=== PATIENT | male | born 1950 | race American Indian/Alaskan Native ===

== ENCOUNTER 2017-04-06 14:43 | Emergency (ER) | payer MEDICARE ==
[2017-04-06 15:54] LABS: Bilirubin,Urine NEG (Negative); Blood,Urine NEG (Negative); Ketones,Urine NEG (Negative); Leukocyte Esterase,Urine NEG (Negative); Mucus,Urine FEW /HPF; Nitrite,Urine NEG (Negative); Protein,Urine <15 mg/dL mg/dL (Negative); RBC,Urine < 1.0 /HPF (0.0-6.0)
[2017-04-06 16:47] LABS: Anion Gap 17 mmol/L; BUN/Creatinine Ratio 16.66; Blood Urea Nitrogen 15 mg/dL (9-20); Calcium 9.1 mg/dL (8.4-10.2); Carbon Dioxide 25 mmol/L (22-30); Chloride 106.1 mmol/L (98-107); Glucose 102 mg/dL (75-100); Potassium 3.9 mmol/L (3.6-5.0); Sodium 144 mmol/L (137-145)
[2017-04-06 16:50] LABS: Hematocrit 24.6 % (35.5-45.6); Hemoglobin 8.2 gm/dl (11.8-15.2); Mean Corpuscular HGB Conc 33 % (32-34); Mean Corpuscular Hemoglobin 41 pg (28-32); Platelet Count 191 K/mm3 (140-440); Red Blood Count 2.02 M/mm3 (3.65-5.03); White Blood Count 7.1 K/mm3 (4.5-11.0)
[2017-04-06 16:51] LABS: Mean Corpuscular Volume 122 fl (84-94); Red Cell Distribution Width 27.6 % (13.2-15.2)
[2017-04-06 18:14] LABS: Basophils % (Manual) 0 % (0.0-1.8); Blastocytes % (Manual) 0 %
[2017-04-06 18:17] LABS: Anisocytosis 3+; Macrocytosis 2+; Poikilocytosis 2+
[2017-04-06 18:18] LABS: Ovalocytes 2+; Tear Drop Cells 1+
[2017-04-06 18:22] LABS: Hypersegmented Neutrophils 2+
[2017-04-06 18:34] LABS: Diff Status Complete; Platelet Estimate Consistent w Auto; Schistocytes Few
--- NOTE | 2017-04-07 00:45 | Emergency Department Report ---
ED Male HPI - General Chief complaint: Urogenital-Male Stated complaint: FLANK PAIN/FREQUENT URINATION Time Seen by Provider: 04/06/17 22:48 Source: patient Mode of arrival: Ambulatory Limitations: No Limitations - History of Present Illness Initial comments: 67 yo Male with a past medical history of hypertension and gout presents to the hospital complaining of decreased urinary frequency and mild dysuria 1 week. Pain rated a 4/10 in intensity. Patient denies urinary incontinence, straining , or dribbling. Complains of abdominal pain, flank pain, or fever. - Related Data Previous Rx's Medication Instructions Recorded Last Taken Type Colchicine 0.6 mg PO ONCE #6 capsule 01/12/16 Unknown Rx HYDROcodone/APAP 5-325 [[place] 1 each PO Q6HR PRN #14 tablet 01/12/16 Unknown Rx 5/325] Prednisone [predniSONE 10 mg 10 mg PO .TAPER #1 tab.ds.pk 01/12/16 Unknown Rx (6-Day Pack, 21 Tabs)] Allergies Allergy/AdvReac Type Severity Reaction Status Date / Time No Known Allergies Allergy Verified 04/06/17 15:14 ED Review of Systems ROS: Stated complaint: FLANK PAIN/FREQUENT URINATION Other details as noted in HPI Comment: All other systems reviewed and negative Constitutional: denies: chills, fever ENT: denies: throat pain Respiratory: denies: cough, shortness of breath Cardiovascular: denies: dyspnea on exertion Gastrointestinal: denies: abdominal pain, nausea, vomiting, diarrhea, hematemesis, melena, hematochezia Genitourinary: dysuria, frequency. denies: urgency, hematuria, discharge, testicular pain Musculoskeletal: denies: back pain Skin: denies: rash Neurological: denies: headache Psychiatric: denies: suicidal thoughts Hematological/Lymphatic: denies: easy bleeding ED Past Medical Hx - Past Medical History Hx Hypertension: Yes Additional medical history: gout - Surgical History Past Surgical History?: No - Social History Smoking Status: Current Every Day Smoker Substance Use Type: None - Medications Home Medications: Home Medications Medication Instructions Recorded Confirmed Last Taken Type Colchicine 0.6 mg PO ONCE #6 capsule 01/12/16 Unknown Rx HYDROcodone/APAP 5-325 [[place] 1 each PO Q6HR PRN #14 tablet 01/12/16 Unknown Rx 5/325] Prednisone [predniSONE 10 mg 10 mg PO .TAPER #1 tab.ds.pk 01/12/16 Unknown Rx (6-Day Pack, 21 Tabs)] ED Physical Exam - General Limitations: No Limitations General appearance: alert, in no apparent distress - Head Head exam: Present: atraumatic - Eye Eye exam: Present: normal appearance, PERRL, EOMI - ENT ENT exam: Present: normal exam, normal orophraynx, mucous membranes dry, mucous membranes moist - Neck Neck exam: Present: normal inspection. Absent: tenderness, meningismus - Respiratory Respiratory exam: Present: normal lung sounds bilaterally. Absent: respiratory distress, wheezes, rales - Cardiovascular Cardiovascular Exam: Present: regular rate, normal rhythm, normal heart sounds - GI/Abdominal GI/Abdominal exam: Present: soft, distended, tenderness, normal bowel sounds. Absent: guarding, rebound - exam: Present: normal inspection, vertical testicular lie. Absent: testicular tenderness, urethral discharge, scrotal swelling, circumcision External exam: Present: normal external exam - Extremities Exam Extremities exam: Present: normal inspection, full ROM - Back Exam Back exam: Present: normal inspection, full ROM ED Course Vital Signs 04/06/17 04/06/17 04/06/17 15:14 23:03 23:05 Temperature 97.8 F Pulse Rate 74 Respiratory 16 Rate Blood Pressure 177/91 196/88 199/89 O2 Sat by Pulse 99 97 97 Oximetry - Reevaluation(s) Reevaluation #1: 04/07/17 01:30 Current studies ordered to evaluate for iron deficiency as a cause of anemia. Unfortunately there was a delay in obtaining the results due to a machine error and need for quality assurance specialist. patient as well as ago at this time and does not want to wait any further for his results. He takes a multivitamin with iron at home. Follow-up will be encouraged ED Medical Decision Making - Lab Data Result diagrams: 04/06/17 16:06 04/06/17 16:06 Lab Results 04/06/17 04/06/17 04/06/17 Range/Units 15:30 16:06 16:06 WBC 7.1 (4.5-11.0) K/mm3 RBC 2.02 L (3.65-5.03) M/mm3 Hgb 8.2 L (11.8-15.2) gm/dl Hct 24.6 L (35.5-45.6) % MCV 122 H (84-94) fl MCH 41 H (28-32) pg MCHC 33 (32-34) % RDW 27.6 H (13.2-15.2) % Plt Count 191 (140-440) K/mm3 Add Manual Diff Complete Total Counted 100 Seg Neuts % (Manual) 63.0 (40.0-70.0) % Band Neutrophils % 0 % Lymphocytes % (Manual) 31.0 (13.4-35.0) % Reactive Lymphs % (Man) 0 % Monocytes % (Manual) 3.0 (0.0-7.3) % Eosinophils % (Manual) 3.0 (0.0-4.3) % Basophils % (Manual) 0 (0.0-1.8) % Metamyelocytes % 0 % Myelocytes % 0 % Promyelocytes % 0 % Blast Cells % 0 % Nucleated RBC % 1.0 H (0.0-0.9) % Seg Neutrophils # Man 4.5 (1.8-7.7) K/mm3 Band Neutrophils # 0.0 K/mm3 Lymphocytes # (Manual) 2.2 (1.2-5.4) K/mm3 Abs React Lymphs (Man) 0.0 K/mm3 Monocytes # (Manual) 0.2 (0.0-0.8) K/mm3 Eosinophils # (Manual) 0.2 (0.0-0.4) K/mm3 Basophils # (Manual) 0.0 (0.0-0.1) K/mm3 Metamyelocytes # 0.0 K/mm3 Myelocytes # 0.0 K/mm3 Promyelocytes # 0.0 K/mm3 Blast Cells # 0.0 K/mm3 WBC Morphology Not Reportable Hypersegmented Neuts 2+ Hyposegmented Neuts Not Reportable Hypogranular Neuts Not Reportable Smudge Cells Not Reportable Toxic Granulation Not Reportable Toxic Vacuolation Not Reportable Dohle Bodies Not Reportable Pelger-Huet Anomaly Not Reportable Waylon Rods Not Reportable Platelet Estimate Consistent w auto Clumped Platelets Not Reportable Plt Clumps, EDTA Not Reportable Large Platelets Not Reportable Giant Platelets Not Reportable Platelet Satelliting Not Reportable Plt Morphology Comment Not Reportable RBC Morphology Not Reportable Dimorphic RBCs Not Reportable Polychromasia Not Reportable Hypochromasia Not Reportable Poikilocytosis 2+ Anisocytosis 3+ Microcytosis Not Reportable Macrocytosis 2+ Spherocytes Not Reportable Pappenheimer Bodies Not Reportable Sickle Cells Not Reportable Target Cells Not Reportable Tear Drop Cells 1+ Ovalocytes 2+ Helmet Cells Not Reportable [place] Bodies Not Reportable [place] Rings Not Reportable [place] Cells Not Reportable Bite Cells Not Reportable Crenated Cell Not Reportable Elliptocytes Not Reportable Acanthocytes (Spur) Not Reportable Rouleaux Not Reportable Hemoglobin C Crystals Not Reportable Schistocytes Few Malaria parasites Not Reportable [place] Bodies Not Reportable Hem Pathologist Commnt Sent to pathology Sodium 144 (137-145) mmol/L Potassium 3.9 (3.6-5.0) mmol/L Chloride 106.1 (98-107) mmol/L Carbon Dioxide 25 (22-30) mmol/L Anion Gap 17 mmol/L BUN 15 (9-20) mg/dL Creatinine 0.9 (0.8-1.5) mg/dL Estimated GFR > 60 ml/min BUN/Creatinine Ratio 16.66 % Glucose 102 H (75-100) mg/dL Calcium 9.1 (8.4-10.2) mg/dL Urine Color Yellow (Yellow) Urine Turbidity Clear (Clear) Urine pH 5.0 (5.0-7.0) Ur Specific [place] 1.018 (1.003-1.030) Urine Protein <15 mg/dl (Negative) mg/dL Urine Glucose (UA) Neg (Negative) mg/dL Urine Ketones Neg (Negative) mg/dL Urine Blood Neg (Negative) Urine Nitrite Neg (Negative) Urine Bilirubin Neg (Negative) Urine Urobilinogen 4.0 (<2.0) mg/dL Ur Leukocyte Esterase Neg (Negative) Urine WBC (Auto) 1.0 (0.0-6.0) /HPF Urine RBC (Auto) < 1.0 (0.0-6.0) /HPF Urine Mucus Few /HPF - Medical Decision Making Patient usually does not reveal any abnormality despite complaints of urinary frequency. Penile exam is unremarkable. No function normal. Pt could not wait for Iron studies prior to discharge. Encouraged to follow up and continue his multivitamins with iron at this time. - Differential Diagnosis UTI, urethritis, epididymitis, urinary retention Critical Care Time: No Critical care attestation.: If time is entered above; I have spent that time in minutes in the direct care of this critically ill patient, excluding procedure time. ED Disposition Clinical Impression: Urinary frequency, Anemia Disposition: TO HOME OR SELFCARE Is pt being admited?: No Does the pt Need Aspirin: No Condition: Stable Instructions: Dysuria (ED), Anemia (ED) Additional Instructions: Your Kidney function and urine are normal. Evaluated shows anemia. You have chosen to leave while the iron studies are pending. Please follow up with your doctor for further workup and evaluation. Return if symptoms worsen. Follow- up with the urologist provided due to your urinary symptoms in the absence of infection. Referrals: SANG ROSE MD [Staff Physician] - 3-5 Days (Urologist) PRIMARY MD RAÚL [Primary Care Provider] - 3-5 Days Time of Disposition: 01:24
[2017-04-07 01:44] VITALS: BP 185/92
[2017-04-07 02:37] LABS: Total Iron Binding Capacity 198.8 mcg/dL (250-450)
== END 2017-04-07 01:44 | disposition home or self-care (01) ==
LOC: ED 14:43
DX: D64.9 Anemia, unspecified (principal); R35.0 Frequency of micturition; I10 Essential (primary) hypertension; F17.200 Nicotine dependence, unspecified, uncomplicated
CPT/HCPCS: 36415; 80048; 81001; 83550; 85007; 85025; 87086; 99283

== ENCOUNTER 2017-08-20 09:15 | Outpatient (CLI) | payer MEDICARE ==
--- NOTE | 2017-08-20 14:38 | Nuclear Medicine Report ---
BONE SCAN: History: Initial staging of prostate cancer. After injection of isotope, gamma camera imaging of the bony system was done. There is a normal uptake of isotope throughout the bony structures without areas of significantly increased or decreased uptake. Normal uptake in the urinary system is seen. IMPRESSION: Normal bone scan.
--- NOTE | 2017-08-20 15:12 | Cat Scan Report ---
CT ABDOMEN PELVIS WITHOUT CONTRAST: HISTORY: Malignant neoplasm of prostate gland. COMPARISON: none. TECHNIQUE: Helical CT in 1.25mm intervals without IV contrast. Sagittal and coronal reconstructions. FINDINGS: Lung bases: Normal. Liver: Normal. Biliary system: Layering sludge or multiple tiny gallstones are suspected within the gallbladder. No abnormal biliary dilatation or inflammation. Pancreas: Normal. Spleen: Normal. Kidneys/ureters/bladder: Normal. Adrenal glands: Normal. Aorta: Normal. Intestines: Normal. Appendix: Normal. Pelvic viscera: The prostate gland is normal size measuring 4 cm in diameter. No obvious mass. Ascites: None. Adenopathy: None. Musculoskeletal: Thoracolumbar spondylosis is identified. No suspicious bony lesion or fracture. IMPRESSION: Cholelithiasis. Otherwise, unremarkable exam of the abdomen and pelvis. No evidence for metastatic disease.
== END 2017-08-20 09:16 | disposition home or self-care (01) ==
LOC: NM 09:15
PROVIDERS: ATTEND Urology
DX: C61 Malignant neoplasm of prostate (principal); K80.20 Calculus of gallbladder without cholecystitis without obstruction; M47.895 Other spondylosis, thoracolumbar region; I10 Essential (primary) hypertension; F17.200 Nicotine dependence, unspecified, uncomplicated
CPT/HCPCS: 74176; 78306; A9503

== ENCOUNTER 2019-09-26 10:16 | Emergency (ER) | payer MEDICARE ==
[2019-09-26 10:24] VITALS: BP 128/80
[2019-09-26] MEDS ORDERED: HEPARIN/ 0.45% NACL DRIP 25,000 UNIT/500 ML BAG ONE (11:49)
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
== END 2019-09-26 15:04 | disposition home or self-care (01) ==
LOC: ED 10:16
DX: M25.572 Pain in left ankle and joints of left foot (principal); I10 Essential (primary) hypertension; M10.9 Gout, unspecified; Z79.899 Other long term (current) drug therapy
CPT/HCPCS: 99282; J1644

== ENCOUNTER 2020-02-20 09:02 | Emergency (ER) | payer MEDICARE ==
[2020-02-20 09:20] VITALS: BP 96/57
--- NOTE | 2020-02-20 10:13 | Emergency Department Report ---
ED ENT HPI - General Chief complaint: Dental/Oral Stated complaint: swollen gums Time Seen by Provider: 02/20/20 09:44 Source: patient Mode of arrival: Ambulatory Limitations: No Limitations - History of Present Illness Initial comments: 69-year-old F [place] male with partial dental plates to the lower dentition presents emerged department complaining of pain and requesting a in injection for pain and infection. States he tried to go to the dentist prior to coming to the emergency department but they advised him he did not take a dose on the week ends. His pain is been present for 1 week reports no fevers, chills, sweats no odynophagia or dysphagia no known trauma. MD complaint: tooth pain, sore throat Severity: mild Quality: aching, dull Consistency: constant Improves with: none Worsens with: none Context- Dental: poor dental care Associated Symptoms: gum swelling, toothache. denies: fever, cough, tinnitus, hearing loss - Related Data Previous Rx's Medication Instructions Recorded Last Taken Type Colchicine 0.6 mg PO ONCE #6 capsule 01/12/16 Unknown Rx HYDROcodone/APAP 5-325 [[place] 1 each PO Q6HR PRN #14 tablet 01/12/16 Unknown Rx 5/325] Prednisone [predniSONE 10 mg 10 mg PO .TAPER #1 tab.ds.pk 01/12/16 Unknown Rx (6-Day Pack, 21 Tabs)] Meloxicam [Mobic] 15 mg PO DAILY #20 tablet 09/26/19 Unknown Rx traMADoL [Ultram] 50 mg PO Q6HR PRN #14 tablet 09/26/19 Unknown Rx Allergies Allergy/AdvReac Type Severity Reaction Status Date / Time No Known Allergies Allergy Verified 04/06/17 15:14 ED Dental HPI - General Chief complaint: Dental/Oral Stated complaint: swollen gums Time Seen by Provider: 02/20/20 09:44 Source: patient Mode of arrival: Ambulatory Limitations: No Limitations - Related Data Previous Rx's Medication Instructions Recorded Last Taken Type Colchicine 0.6 mg PO ONCE #6 capsule 01/12/16 Unknown Rx HYDROcodone/APAP 5-325 [[place] 1 each PO Q6HR PRN #14 tablet 01/12/16 Unknown Rx 5/325] Prednisone [predniSONE 10 mg 10 mg PO .TAPER #1 tab.ds.pk 01/12/16 Unknown Rx (6-Day Pack, 21 Tabs)] Meloxicam [Mobic] 15 mg PO DAILY #20 tablet 09/26/19 Unknown Rx traMADoL [Ultram] 50 mg PO Q6HR PRN #14 tablet 09/26/19 Unknown Rx Allergies Allergy/AdvReac Type Severity Reaction Status Date / Time No Known Allergies Allergy Verified 04/06/17 15:14 ED Review of Systems ROS: Stated complaint: swollen gums Other details as noted in HPI Comment: All other systems reviewed and negative ED Past Medical Hx - Past Medical History Previous Medical History?: Yes Hx Hypertension: Yes Additional medical history: gout - Social History Smoking Status: Current Every Day Smoker Substance Use Type: None - Medications Home Medications: Home Medications Medication Instructions Recorded Confirmed Last Taken Type Colchicine 0.6 mg PO ONCE #6 capsule 01/12/16 Unknown Rx HYDROcodone/APAP 5-325 [[place] 1 each PO Q6HR PRN #14 tablet 01/12/16 Unknown Rx 5/325] Prednisone [predniSONE 10 mg 10 mg PO .TAPER #1 tab.ds.pk 01/12/16 Unknown Rx (6-Day Pack, 21 Tabs)] Meloxicam [Mobic] 15 mg PO DAILY #20 tablet 09/26/19 Unknown Rx traMADoL [Ultram] 50 mg PO Q6HR PRN #14 tablet 09/26/19 Unknown Rx ED Physical Exam - General Limitations: No Limitations General appearance: alert, in no apparent distress - Head Head exam: Present: atraumatic, normocephalic - Eye Eye exam: Present: normal appearance, PERRL, EOMI Pupils: Present: normal accommodation - ENT ENT exam: Present: normal exam, normal orophraynx, mucous membranes moist, TM's normal bilaterally, other (Symptoms of erythema to the lower region. No abscesses noted. Tongue and uvula are midline) - Neck Neck exam: Present: normal inspection, tenderness. Absent: lymphadenopathy - Respiratory Respiratory exam: Present: normal lung sounds bilaterally. Absent: respiratory distress, wheezes, rales, chest wall tenderness, accessory muscle use - Cardiovascular Cardiovascular Exam: Present: regular rate, normal rhythm. Absent: systolic murmur, diastolic murmur, rubs, gallop - GI/Abdominal GI/Abdominal exam: Present: soft, normal bowel sounds - Rectal Rectal exam: Present: deferred - Extremities Exam Extremities exam: Present: normal inspection - Back Exam Back exam: Present: normal inspection - Neurological Exam Neurological exam: Present: alert, oriented X3 - Psychiatric Psychiatric exam: Present: normal affect, normal mood - Skin Skin exam: Present: warm, dry, intact, normal color. Absent: rash ED Course Vital Signs 02/20/20 09:08 Temperature 97.4 F L Pulse Rate 104 H Respiratory 18 Rate Blood Pressure 96/57 O2 Sat by Pulse 99 Oximetry Critical care attestation.: If time is entered above; I have spent that time in minutes in the direct care of this critically ill patient, excluding procedure time. ED Disposition Clinical Impression: Dentalgia, Gingivitis Disposition: MED SCREENING EXAM-LEFT Is pt being admited?: No Does the pt Need Aspirin: No Condition: Stable Instructions: Toothache (ED), Dental Caries (ED), Gingivitis (ED) Additional Instructions: Please acquire [id number] antiseptic to gargle and spit utilize Tylenol and Motrin for pain all also [id number] Anbesol Referrals: PRIMARY CARE, [Primary Care Provider] - 3-5 Days [facility] [Outside] - 3-5 Days
== END 2020-02-20 11:07 | disposition left against medical advice (07) ==
LOC: ED 09:02
DX: K05.10 Chronic gingivitis, plaque induced (principal); Z53.21 Procedure and treatment not carried out due to patient leaving prior to being seen by health care provider

== ENCOUNTER 2020-11-20 20:21 | Emergency (ER) | payer MEDICARE ==
[2020-11-20 23:21] VITALS: BP 157/88
[2020-11-20] MEDS ORDERED: ACETAMINOPHEN 500 MG TAB PO ONE (23:22)
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
== END 2020-11-21 04:17 | disposition home or self-care (01) ==
LOC: ED 20:21
DX: S00.03XA Contusion of scalp, initial encounter (principal); J32.9 Chronic sinusitis, unspecified; I10 Essential (primary) hypertension; F17.200 Nicotine dependence, unspecified, uncomplicated; Z79.1 Long term (current) use of non-steroidal anti-inflammatories (NSAID); Z79.2 Long term (current) use of antibiotics; Z79.899 Other long term (current) drug therapy; W22.8XXA Striking against or struck by other objects, initial encounter; Y93.89 Activity, other specified; Y92.89 Other specified places as the place of occurrence of the external cause; Y99.8 Other external cause status
CPT/HCPCS: 70450

== ENCOUNTER 2020-12-03 13:57 | Emergency (ER) | payer MEDICARE ==
[2020-12-03 16:47] VITALS: BP 171/104
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
[2020-12-03] MEDS ORDERED: HYDROcodone/ACETAMINOPHEN 5-325 MG TAB PO ONE (18:47)
== END 2020-12-03 20:55 | disposition home or self-care (01) ==
LOC: ED 13:57
DX: S42.102A Fracture of unspecified part of scapula, left shoulder, initial encounter for closed fracture (principal); I10 Essential (primary) hypertension; F17.200 Nicotine dependence, unspecified, uncomplicated; Z79.1 Long term (current) use of non-steroidal anti-inflammatories (NSAID); Z79.2 Long term (current) use of antibiotics; Z79.899 Other long term (current) drug therapy; X58.XXXA Exposure to other specified factors, initial encounter; Y93.89 Activity, other specified; Y92.89 Other specified places as the place of occurrence of the external cause; Y99.8 Other external cause status

== ENCOUNTER 2021-02-08 11:36 | Emergency (ER) | payer MEDICARE ==
[2021-02-08 11:59] VITALS: BP 156/92
[2021-02-08] MEDS ORDERED: TETRACAINE 0.5% OPHTH SOLN 4ML OU PRN (14:42)
[2021-02-08] MEDS ORDERED: FLUORESCEIN 1 MG STRIP OP ONE (14:42)
--- NOTE | 2021-02-08 14:45 | Emergency Department Report ---
ED General Adult HPI - General Chief complaint: Eye Problems Stated complaint: LEFT EYE PAIN Time Seen by Provider: 02/08/21 13:57 Source: patient Mode of arrival: Ambulatory Limitations: No Limitations - History of Present Illness Initial comments: 70-year-old -[place] male patient presents with complaints of left eyelid pain, redness, and swelling starting this morning. He denies any injury or waking up with the eye crusted shut. He also states that eyes very watery and has a burning sensation. No contact lens wearing per patient. No direct trauma to the eye or foreign body sensation. He does report mild photophobia and denies pain with eye movements or restricted eye movements. -: Sudden Severity scale (0 -10): 10 - Related Data Previous Rx's Medication Instructions Recorded Last Taken Type Colchicine 0.6 mg PO ONCE #6 capsule 01/12/16 Unknown Rx HYDROcodone/APAP 5-325 [[place] 1 each PO Q6HR PRN #14 tablet 01/12/16 Unknown Rx 5/325] Prednisone [predniSONE 10 mg 10 mg PO .TAPER #1 tab.ds.pk 01/12/16 Unknown Rx (6-Day Pack, 21 Tabs)] Meloxicam [Mobic] 15 mg PO DAILY #20 tablet 09/26/19 Unknown Rx Amoxicillin/Potassium Clav 1 each PO Q12H #20 tablet 11/21/20 Unknown Rx [Augmentin 875-125 Tablet] Butalb/Acetamin/Caff 50-325-40 1 tab PO Q6HR PRN #12 tab 11/21/20 Unknown Rx [Fioricet 50-325-40] Ibuprofen [Motrin] 600 mg PO Q8H PRN #20 tablet 11/21/20 Unknown Rx traMADoL [Ultram 50 MG tab] 50 mg PO Q6HR PRN #14 tablet 12/03/20 Unknown Rx Acetaminophen 975 mg PO TID PRN #20 capsule 02/08/21 Unknown Rx Polymyxin B Sulf/Trimethoprim 3 drops OP Q3H 7 Days #1 drops 02/08/21 Unknown Rx [Polytrim Eye Drops] Allergies Allergy/AdvReac Type Severity Reaction Status Date / Time No Known Allergies Allergy Verified 02/08/21 11:51 ED Review of Systems ROS: Stated complaint: LEFT EYE PAIN Other details as noted in HPI Constitutional: denies: fever, malaise Eyes: eye pain, eye discharge. denies: vision change Neurological: denies: headache, numbness, paresthesias ED Past Medical Hx - Past Medical History Previous Medical History?: Yes Hx Hypertension: Yes Additional medical history: gout - Surgical History Past Surgical History?: No - Social History Smoking Status: Current Every Day Smoker Substance Use Type: None - Medications Home Medications: Home Medications Medication Instructions Recorded Confirmed Last Taken Type Colchicine 0.6 mg PO ONCE #6 capsule 01/12/16 Unknown Rx HYDROcodone/APAP 5-325 [[place] 1 each PO Q6HR PRN #14 tablet 01/12/16 Unknown Rx 5/325] Prednisone [predniSONE 10 mg 10 mg PO .TAPER #1 tab.ds.pk 01/12/16 Unknown Rx (6-Day Pack, 21 Tabs)] Meloxicam [Mobic] 15 mg PO DAILY #20 tablet 09/26/19 Unknown Rx Amoxicillin/Potassium Clav 1 each PO Q12H #20 tablet 11/21/20 Unknown Rx [Augmentin 875-125 Tablet] Butalb/Acetamin/Caff 50-325-40 1 tab PO Q6HR PRN #12 tab 11/21/20 Unknown Rx [Fioricet 50-325-40] Ibuprofen [Motrin] 600 mg PO Q8H PRN #20 tablet 11/21/20 Unknown Rx traMADoL [Ultram 50 MG tab] 50 mg PO Q6HR PRN #14 tablet 12/03/20 Unknown Rx Acetaminophen 975 mg PO TID PRN #20 capsule 02/08/21 Unknown Rx Polymyxin B Sulf/Trimethoprim 3 drops OP Q3H 7 Days #1 drops 02/08/21 Unknown Rx [Polytrim Eye Drops] ED Physical Exam - General Limitations: No Limitations General appearance: alert, in no apparent distress - Head Head exam: Present: atraumatic, normocephalic - Eye Eye exam: Present: normal appearance, PERRL, EOMI (No pain with eye movement), conjunctival injection (left), periorbital tenderness (mild), other (Mild swelling noted to the left lower eyelid; no cellulitic changes noted). Absent: scleral icterus, periorbital swelling - Expanded Eye Exam Expanded IOP (L) in mmH (11, 14, 12, 19) IOP measured with: Tonopen - Neck Neck exam: Present: normal inspection - Respiratory Respiratory exam: Absent: respiratory distress - Cardiovascular Cardiovascular Exam: Present: regular rate - Neurological Exam Neurological exam: Present: alert, oriented X3 - Psychiatric Psychiatric exam: Present: normal affect, normal mood - Skin Skin exam: Present: warm, dry, intact, normal color. Absent: rash ED Course Vital Signs 02/08/21 11:58 Temperature 98 F Pulse Rate 82 Respiratory 18 Rate Blood Pressure 156/92 [Right] O2 Sat by Pulse 97 Oximetry ED Medical Decision Making - Medical Decision Making 70-year-old -[place] Irish male patient presents with complaints of left eyelid pain, redness, and swelling starting this morning. He denies any injury or waking up with the eye crusted shut. He also states that eyes very watery and has a burning sensation. No contact lens wearing per patient. No direct trauma to the eye or foreign body sensation. He does report mild photophobia and denies pain with eye movements or restricted eye movements. Shaheed-Pen eye pressures were measured at 19, 11, 12, and 14. Visual acuity 20/40 bilaterally. No noted corneal abrasions or wounds wound exam. He denies decreased vision of the eye. We will treat for acute bacterial conjunctivitis. Patient to follow-up with ophthalmology, referral provided. Patient is well- appearing and he is stable for discharge home. Very strict return precautions were discussed in detail with patient who verbalizes understanding. Critical care attestation.: If time is entered above; I have spent that time in minutes in the direct care of this critically ill patient, excluding procedure time. ED Disposition Clinical Impression: Irritation of left eye Disposition: DC-01 TO HOME OR SELFCARE Is pt being admited?: No Condition: Stable Instructions: Bacterial Conjunctivitis, Adult Prescriptions: Acetaminophen 975 mg PO TID PRN #20 capsule PRN Reason: pain Polymyxin B Sulf/Trimethoprim [Polytrim Eye Drops] 3 drops OP Q3H 7 Days #1 drops Referrals: DEANGELO PRUETT DO [Staff Physician] - 3-5 Days
[2021-02-08] MEDS ORDERED: D5W/0.9% NACL 1,000 ML IV ONE (15:48)
[2021-02-08] MEDS ORDERED: LACTATED RINGERS 1,000 ML ONE (15:48)
[2021-02-08] MEDS ORDERED: ACETAMINOPHEN 500 MG TAB PO STA (16:02)
== END 2021-02-08 16:25 | disposition home or self-care (01) ==
LOC: ED 11:36
DX: H57.12 Ocular pain, left eye (principal); R22.0 Localized swelling, mass and lump, head; I10 Essential (primary) hypertension; F17.200 Nicotine dependence, unspecified, uncomplicated; Z79.1 Long term (current) use of non-steroidal anti-inflammatories (NSAID); Z79.2 Long term (current) use of antibiotics; Z79.899 Other long term (current) drug therapy
CPT/HCPCS: J7042; J7120

== ENCOUNTER 2021-03-18 08:28 | Emergency (ER) | payer MEDICARE ==
[2021-03-18] MEDS ORDERED: KETOROLAC 30 MG/1 ML INJ IM ONE (10:13)
[2021-03-18] MEDS ORDERED: ACETAMINOPHEN 500 MG TAB PO ONE (10:13)
--- NOTE | 2021-03-18 10:21 | Emergency Department Report ---
ED Back Pain/Injury HPI - General Chief Complaint: Back Pain/Injury Stated Complaint: LOWER BACK PAIN Time Seen by Provider: 03/18/21 10:13 Source: patient Limitations: No Limitations - History of Present Illness Initial Comments: CC: "My back has been hurting. My muscles feel swollen." HPI: This is a 71 yo male with hx of gout and hypertension who presents with lower back pain since . 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 No trauma, just repetitive movement in an out of a truck. Alleve and diclofenac gel provide no relief. Denies fall. Denies fever or weight loss. No fecal or urinary incontinence. MD Complaint: back pain -: Gradual, days(s) (3 days) Place: work Severity: moderate Severity scale (0 -10): 7 Quality: dull Consistency: constant Improves With: none Worsens With: movement Associated Symptoms: denies other symptoms Treatments Prior to Arrival: NSAIDS - Related Data Previous Rx's Medication Instructions Recorded Last Taken Type Colchicine 0.6 mg PO ONCE #6 capsule 01/12/16 Unknown Rx HYDROcodone/APAP 5-325 [[place] 1 each PO Q6HR PRN #14 tablet 01/12/16 Unknown Rx 5/325] Prednisone [predniSONE 10 mg 10 mg PO .TAPER #1 tab.ds.pk 01/12/16 Unknown Rx (6-Day Pack, 21 Tabs)] Meloxicam [Mobic] 15 mg PO DAILY #20 tablet 09/26/19 Unknown Rx Amoxicillin/Potassium Clav 1 each PO Q12H #20 tablet 11/21/20 Unknown Rx [Augmentin 875-125 Tablet] Butalb/Acetamin/Caff 50-325-40 1 tab PO Q6HR PRN #12 tab 11/21/20 Unknown Rx [Fioricet 50-325-40] Ibuprofen [Motrin] 600 mg PO Q8H PRN #20 tablet 11/21/20 Unknown Rx traMADoL [Ultram 50 MG tab] 50 mg PO Q6HR PRN #14 tablet 12/03/20 Unknown Rx Acetaminophen 975 mg PO TID PRN #20 capsule 02/08/21 Unknown Rx Polymyxin B Sulf/Trimethoprim 3 drops OP Q3H 7 Days #1 drops 02/08/21 Unknown Rx [Polytrim Eye Drops] Cyclobenzaprine [Flexeril] 10 mg PO TID PRN #15 tablet 03/18/21 Unknown Rx HYDROcodone/APAP 5-325 [[place] 1 each PO Q6HR PRN #10 tablet 03/18/21 Unknown Rx 5/325] Allergies Allergy/AdvReac Type Severity Reaction Status Date / Time No Known Allergies Allergy Verified 03/18/21 08:38 ED Review of Systems ROS: Stated complaint: LOWER BACK PAIN Other details as noted in HPI Comment: All other systems reviewed and negative Constitutional: denies: fever, malaise Respiratory: denies: cough, shortness of breath Gastrointestinal: denies: abdominal pain, nausea, vomiting Musculoskeletal: back pain ED Past Medical Hx - Past Medical History Previous Medical History?: Yes Hx Hypertension: Yes Additional medical history: gout - Social History Smoking Status: Current Every Day Smoker Substance Use Type: None - Medications Home Medications: Home Medications Medication Instructions Recorded Confirmed Last Taken Type Colchicine 0.6 mg PO ONCE #6 capsule 01/12/16 Unknown Rx HYDROcodone/APAP 5-325 [[place] 1 each PO Q6HR PRN #14 tablet 01/12/16 Unknown Rx 5/325] Prednisone [predniSONE 10 mg 10 mg PO .TAPER #1 tab.ds.pk 01/12/16 Unknown Rx (6-Day Pack, 21 Tabs)] Meloxicam [Mobic] 15 mg PO DAILY #20 tablet 09/26/19 Unknown Rx Amoxicillin/Potassium Clav 1 each PO Q12H #20 tablet 11/21/20 Unknown Rx [Augmentin 875-125 Tablet] Butalb/Acetamin/Caff 50-325-40 1 tab PO Q6HR PRN #12 tab 11/21/20 Unknown Rx [Fioricet 50-325-40] Ibuprofen [Motrin] 600 mg PO Q8H PRN #20 tablet 11/21/20 Unknown Rx traMADoL [Ultram 50 MG tab] 50 mg PO Q6HR PRN #14 tablet 12/03/20 Unknown Rx Acetaminophen 975 mg PO TID PRN #20 capsule 02/08/21 Unknown Rx Polymyxin B Sulf/Trimethoprim 3 drops OP Q3H 7 Days #1 drops 02/08/21 Unknown Rx [Polytrim Eye Drops] Cyclobenzaprine [Flexeril] 10 mg PO TID PRN #15 tablet 03/18/21 Unknown Rx HYDROcodone/APAP 5-325 [[place] 1 each PO Q6HR PRN #10 tablet 03/18/21 Unknown Rx 5/325] ED Physical Exam - General Limitations: No Limitations General appearance: alert, in no apparent distress, other (Appears comfortable, sitting upright in chair with legs crossed at the knee) - Head Head exam: Present: atraumatic, normocephalic - Eye Eye exam: Absent: scleral icterus, conjunctival injection - ENT ENT exam: Present: mucous membranes moist - Neck Neck exam: Present: normal inspection - Respiratory Respiratory exam: Present: normal lung sounds bilaterally. Absent: respiratory distress, wheezes, rales, rhonchi, stridor - Cardiovascular Cardiovascular Exam: Present: regular rate, normal rhythm, normal heart sounds. Absent: systolic murmur, diastolic murmur, rubs, gallop - GI/Abdominal GI/Abdominal exam: Present: soft. Absent: distended, tenderness, guarding, rebound - Rectal Rectal exam: Present: deferred - Extremities Exam Extremities exam: Present: normal inspection - Back Exam Back exam: Present: full ROM, muscle spasm. Absent: tenderness, vertebral tenderness - Neurological Exam Neurological exam: Present: alert, oriented X3 - Psychiatric Psychiatric exam: Present: normal affect, normal mood - Skin Skin exam: Present: warm, dry, intact, normal color. Absent: rash ED Medical Decision Making - Medical Decision Making Lower back strain due to repetitive movement in and out of truck also exacerbated by prolonged driving. Though red flags such as trauma weight loss neurological deficit incontinence. Patient prescribed Flexeril and [place]. He also requests light duty for 4 days. Patient referred to spine surgeons at, [facility] brain and strategic communications specialist. Critical care attestation.: If time is entered above; I have spent that time in minutes in the direct care of this critically ill patient, excluding procedure time. ED Disposition Clinical Impression: Repetitive strain injury of lower back Disposition: DC-01 TO HOME OR SELFCARE Is pt being admited?: No Does the pt Need Aspirin: No Condition: Stable Instructions: Lumbar Strain Prescriptions: Cyclobenzaprine [Flexeril] 10 mg PO TID PRN #15 tablet PRN Reason: Muscle Spasm HYDROcodone/APAP 5-325 [[place] 5/325] 1 each PO Q6HR PRN #10 tablet PRN Reason: Pain Forms: Work/School Release Form(ED)
== END 2021-03-18 11:02 | disposition home or self-care (01) ==
LOC: ED 08:28
DX: S39.012A Strain of muscle, fascia and tendon of lower back, initial encounter (principal); I10 Essential (primary) hypertension; F17.200 Nicotine dependence, unspecified, uncomplicated; Z79.899 Other long term (current) drug therapy; X58.XXXA Exposure to other specified factors, initial encounter; Y93.89 Activity, other specified; Y92.89 Other specified places as the place of occurrence of the external cause; Y99.8 Other external cause status
CPT/HCPCS: 96372; 99282; J1885

== ENCOUNTER 2021-05-08 03:37 | Emergency (ER) | payer MEDICARE ==
[2021-05-08 05:25] VITALS: BP 137/81
[2021-05-08] MEDS ORDERED: FAMOTIDINE 20 MG TAB PO ONE (05:28)
[2021-05-08] MEDS ORDERED: ONDANSETRON 4 MG ODT TAB PO ONE (05:28)
[2021-05-08] MEDS ORDERED: DICYCLOMINE 20 MG TAB PO ONE (05:28)
--- NOTE | 2021-05-08 05:31 | Event Note ---
ED Screening Note Date of service: 05/08/21 Time: 05:30 ED Screening Note: Patient is a 71-year-old -Omani male with a history of hypertension and gout who presents to the ED with complaint of acute onset persistent diffuse abdominal pain for the last 3 days. Patient states that the pain has been persistent despite taking qmpl-dma-kziezry antacids like Laney-Waverly, Pepto- Bismol and Mylanta. Patient denies dizziness, syncope, vomiting, nausea, diarrhea, constipation, chest pain or shortness of breath, hematuria, dysuria, urinary frequency and urgency, fever or chills and cough. This initial assessment/diagnostic orders/clinical plan/treatment(s) is/are subject to change based on patients health status, clinical progression and re- assessment by fellow clinical providers in the ED. Further treatment and workup at subsequent clinical providers discretion. Patient/guardian urged not to elope from the ED as their condition may be serious if not clinically assessed and managed. Initial orders include: CBC, CMP, UA, lipase,
[2021-05-08 06:19] LABS: Albumin 4.2 g/dL (3.9-5); Calcium 9.2 mg/dL (8.4-10.2)
[2021-05-08 06:32] LABS: Basophils % (Auto) 0.3 % (0.0-1.8); Eosinophils # (Auto) 0.1 K/mm3 (0.0-0.4); Eosinophils % (Auto) 0.8 % (0.0-4.3); Hematocrit 42.5 % (35.5-45.6); Hemoglobin 14.3 gm/dl (11.8-15.2); Lymphocytes # (Auto) 1.6 K/mm3 (1.2-5.4); Lymphocytes % (Auto) 17.5 % (13.4-35.0); Mean Corpuscular HGB Conc 34 % (32-34); Mean Corpuscular Volume 105 fl (84-94); Monocytes # (Auto) 0.4 K/mm3 (0.0-0.8); Monocytes % (Auto) 4.3 % (0.0-7.3); Platelet Count 277 K/mm3 (140-440); Red Blood Count 4.04 M/mm3 (3.65-5.03); Red Cell Distribution Width 16.7 % (13.2-15.2)
--- NOTE | 2021-05-08 06:56 | Emergency Department Report ---
ED Abdominal Pain HPI - General Chief Complaint: Abdominal Pain Stated Complaint: ABD PAIN Time Seen by Provider: 05/08/21 06:44 Source: patient Mode of arrival: Ambulatory Limitations: No Limitations - History of Present Illness Initial Comments: Patient is 71 years old male with history of hypertension. Patient presented to the ER complaining of diffuse abdominal pain for the last 3 days. Patient describes his pain as burning sensation in his abdomen. Patient rated his pain at 5 out of 10. He stated that pain comes and goes. Patient denied any fever or chills. No vomiting but nauseated. He denied diarrhea or constipation. Patient denied any chest pain or shortness of breath. MD Complaint: abdominal pain -: days(s) (3) Location: diffuse Radiation: none Migration to: no migration Severity: moderate Severity scale (0 -10): 6 Quality: burning Associated Symptoms: nausea. denies: vomiting, diarrhea, fever - Related Data Previous Rx's Medication Instructions Recorded Last Taken Type Colchicine 0.6 mg PO ONCE #6 capsule 01/12/16 Unknown Rx HYDROcodone/APAP 5-325 [[place] 1 each PO Q6HR PRN #14 tablet 01/12/16 Unknown Rx 5/325] Prednisone [predniSONE 10 mg 10 mg PO .TAPER #1 tab.ds.pk 01/12/16 Unknown Rx (6-Day Pack, 21 Tabs)] Meloxicam [Mobic] 15 mg PO DAILY #20 tablet 09/26/19 Unknown Rx Amoxicillin/Potassium Clav 1 each PO Q12H #20 tablet 11/21/20 Unknown Rx [Augmentin 875-125 Tablet] Butalb/Acetamin/Caff 50-325-40 1 tab PO Q6HR PRN #12 tab 11/21/20 Unknown Rx [Fioricet 50-325-40] Ibuprofen [Motrin] 600 mg PO Q8H PRN #20 tablet 11/21/20 Unknown Rx traMADoL [Ultram 50 MG tab] 50 mg PO Q6HR PRN #14 tablet 12/03/20 Unknown Rx Acetaminophen 975 mg PO TID PRN #20 capsule 02/08/21 Unknown Rx Polymyxin B Sulf/Trimethoprim 3 drops OP Q3H 7 Days #1 drops 02/08/21 Unknown Rx [Polytrim Eye Drops] Cyclobenzaprine [Flexeril] 10 mg PO TID PRN #15 tablet 03/18/21 Unknown Rx HYDROcodone/APAP 5-325 [[place] 1 each PO Q6HR PRN #10 tablet 03/18/21 Unknown Rx 5/325] Allergies Allergy/AdvReac Type Severity Reaction Status Date / Time No Known Allergies Allergy Verified 03/18/21 08:38 ED Review of Systems ROS: Stated complaint: ABD PAIN Other details as noted in HPI Comment: All other systems reviewed and negative Constitutional: denies: chills, fever Respiratory: denies: cough, shortness of breath, SOB with exertion, SOB at rest Cardiovascular: denies: chest pain, palpitations Gastrointestinal: abdominal pain, nausea. denies: vomiting, diarrhea, constipation, hematemesis, melena, hematochezia Genitourinary: denies: urgency, dysuria, frequency, hematuria, discharge, testi cular pain, testicular mass Musculoskeletal: denies: back pain Neurological: denies: headache, weakness, numbness, paresthesias, confusion ED Past Medical Hx - Past Medical History Hx Hypertension: Yes Additional medical history: gout - Social History Smoking Status: Current Some Day Smoker Substance Use Type: None - Medications Home Medications: Home Medications Medication Instructions Recorded Confirmed Last Taken Type Colchicine 0.6 mg PO ONCE #6 capsule 01/12/16 Unknown Rx HYDROcodone/APAP 5-325 [[place] 1 each PO Q6HR PRN #14 tablet 01/12/16 Unknown Rx 5/325] Prednisone [predniSONE 10 mg 10 mg PO .TAPER #1 tab.ds.pk 01/12/16 Unknown Rx (6-Day Pack, 21 Tabs)] Meloxicam [Mobic] 15 mg PO DAILY #20 tablet 09/26/19 Unknown Rx Amoxicillin/Potassium Clav 1 each PO Q12H #20 tablet 11/21/20 Unknown Rx [Augmentin 875-125 Tablet] Butalb/Acetamin/Caff 50-325-40 1 tab PO Q6HR PRN #12 tab 11/21/20 Unknown Rx [Fioricet 50-325-40] Ibuprofen [Motrin] 600 mg PO Q8H PRN #20 tablet 11/21/20 Unknown Rx traMADoL [Ultram 50 MG tab] 50 mg PO Q6HR PRN #14 tablet 12/03/20 Unknown Rx Acetaminophen 975 mg PO TID PRN #20 capsule 02/08/21 Unknown Rx Polymyxin B Sulf/Trimethoprim 3 drops OP Q3H 7 Days #1 drops 02/08/21 Unknown Rx [Polytrim Eye Drops] Cyclobenzaprine [Flexeril] 10 mg PO TID PRN #15 tablet 03/18/21 Unknown Rx HYDROcodone/APAP 5-325 [[place] 1 each PO Q6HR PRN #10 tablet 03/18/21 Unknown Rx 5/325] ED Physical Exam - General Limitations: No Limitations General appearance: alert, in no apparent distress - Head Head exam: Present: atraumatic, normocephalic, normal inspection - Eye Eye exam: Present: normal appearance, PERRL - ENT ENT exam: Present: normal exam, normal orophraynx, mucous membranes moist - Neck Neck exam: Present: normal inspection, full ROM. Absent: tenderness, meningismus - Respiratory Respiratory exam: Present: normal lung sounds bilaterally - Cardiovascular Cardiovascular Exam: Present: regular rate, normal rhythm, normal heart sounds - GI/Abdominal GI/Abdominal exam: Present: soft, normal bowel sounds. Absent: distended, tenderness, guarding, rebound, rigid, organomegaly, mass, bruit, pulsatile mass, hernia - Extremities Exam Extremities exam: Present: normal inspection, full ROM, normal capillary refill. Absent: pedal edema, calf tenderness - Back Exam Back exam: Present: normal inspection, full ROM. Absent: CVA tenderness (R), CVA tenderness (L) - Neurological Exam Neurological exam: Present: alert, oriented X3, CN II-XII intact, normal gait, reflexes normal. Absent: motor sensory deficit - Psychiatric Psychiatric exam: Present: normal mood - Skin Skin exam: Present: warm, intact, normal color ED Course Vital Signs 05/08/21 05/08/21 05:15 05:21 Temperature 97.7 F 97.7 F Pulse Rate 84 Respiratory 20 Rate Blood Pressure 137/81 O2 Sat by Pulse 100 Oximetry ED Medical Decision Making - Lab Data Result diagrams: 05/08/21 05:32 05/08/21 05:32 - EKG Data -: EKG Interpreted by Ri EKG shows normal: sinus rhythm Rate: normal - EKG Data Interpretation: no acute changes - Radiology Data Radiology results: report reviewed - Medical Decision Making Patient is 71 years old male with history of hypertension. Patient presented to the ER complaining of diffuse abdominal pain for the last 3 days. Patient describes his pain as burning sensation in his abdomen. Patient rated his pain at 5 out of 10. He stated that pain comes and goes. Patient denied any fever or chills. No vomiting but nauseated. He denied diarrhea or constipation. Patient denied any chest pain or shortness of breath. Labs reviewed and is unremarkable except for slightly impaired kidney function. CT abdomen and pelvis showed no acute abnormality and showed a cholelithiasis. No evidence of acute cholecystitis. Patient stated that his symptom is much better. 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 Patient advised to return to the ER if he develop any new symptoms. Critical care attestation.: If time is entered above; I have spent that time in minutes in the direct care of this critically ill patient, excluding procedure time. ED Disposition Clinical Impression: Acute abdominal pain, Cholelithiasis Disposition: 01 HOME / SELF CARE / HOMELESS Is pt being admited?: No Condition: Stable Instructions: Cholelithiasis, Abdominal Pain, Adult, [id number] Referrals: PRIMARY CARE [Primary Care Provider] - 3-5 Days
[2021-05-08 08:14] LABS: Bilirubin,Urine NEG (Negative); Blood,Urine NEG (Negative); Color,Urine Yellow (Yellow); Protein,Urine <15 mg/dL mg/dL (Negative); Urobilinogen,Urine < 2.0 mg/dL (<2.0); WBC,Urine < 1.0 /HPF (0.0-6.0)
--- NOTE | 2021-05-08 08:51 | Cat Scan Report ---
CT abdomen pelvis wo con INDICATION: ABDOMINAL PAIN. COMPARISON: August 20, 2017 TECHNIQUE: Abdominal and pelvic CT exam performed. All CT scans at this location are performed using CT dose reduction for ALARA by means of automated exposure control. FINDINGS: CT ABDOMEN and PELVIS: Lung Bases: No significant abnormality. Liver: No significant abnormality. Biliary: Numerous layering gallstones without gallbladder wall thickening or pericholecystic fluid. Spleen: No significant abnormality. Pancreas: No significant abnormality. Adrenals: No significant abnormality. Kidneys: No significant abnormality. Lymphatics: No lymphadenopathy. Vasculature: No significant abnormality. Bowel: No significant abnormality. Pelvis: Brachytherapy seeds in the prostate. Osseous Structures: Leftward curvature of the lumbar spine. Multilevel spondylosis. No suspicious sc lerotic lesion. Additional Findings: None IMPRESSION: 1. No acute findings. 2. Cholelithiasis without evidence of cholecystitis. Signer Name: Allan Dinero MD Signed: 05/08/2021 8:46 AM Workstation Name: [id number]
--- NOTE | 2021-05-15 13:56 | Electrocardiograph Report ---
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
== END 2021-05-08 10:01 | disposition home or self-care (01) ==
LOC: ED 03:37
DX: K80.20 Calculus of gallbladder without cholecystitis without obstruction (principal); I10 Essential (primary) hypertension; M10.9 Gout, unspecified; F17.200 Nicotine dependence, unspecified, uncomplicated
CPT/HCPCS: 36415; 74176; 80053; 81001; 83690; 85025; 93005; 99284; Q0162

== ENCOUNTER 2021-12-24 02:16 | Emergency (ER) | payer MEDICARE ==
--- NOTE | 2021-12-24 22:40 | Emergency Department Report ---
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 Denies any history of diabetes or any trauma traumatic event to the foot. No numbness or tingling, fever, chills, sweats.` -: Gradual Location: lower extremity Radiation: non-radiation Quality: dull Consistency: constant Improves with: none Worsens with: movement Associated Symptoms: denies other symptoms. denies: diaphoresis, fever/chills, malaise - Related Data Previous Rx's Medication Instructions Recorded Last Taken Type Colchicine 0.6 mg PO ONCE #6 capsule 01/12/16 Unknown Rx HYDROcodone/APAP 5-325 [[place] 1 each PO Q6HR PRN #14 tablet 01/12/16 Unknown Rx 5/325] Prednisone [predniSONE 10 mg 10 mg PO .TAPER #1 tab.ds.pk 01/12/16 Unknown Rx (6-Day Pack, 21 Tabs)] Meloxicam [Mobic] 15 mg PO DAILY #20 tablet 09/26/19 Unknown Rx Amoxicillin/Potassium Clav 1 each PO Q12H #20 tablet 11/21/20 Unknown Rx [Augmentin 875-125 Tablet] Butalb/Acetamin/Caff 50-325-40 1 tab PO Q6HR PRN #12 tab 11/21/20 Unknown Rx [Fioricet 50-325-40] Ibuprofen [Motrin] 600 mg PO Q8H PRN #20 tablet 11/21/20 Unknown Rx traMADoL [Ultram 50 MG tab] 50 mg PO Q6HR PRN #14 tablet 12/03/20 Unknown Rx Acetaminophen 975 mg PO TID PRN #20 capsule 02/08/21 Unknown Rx Polymyxin B Sulf/Trimethoprim 3 drops OP Q3H 7 Days #1 drops 02/08/21 Unknown Rx [Polytrim Eye Drops] Cyclobenzaprine [Flexeril] 10 mg PO TID PRN #15 tablet 03/18/21 Unknown Rx HYDROcodone/APAP 5-325 [[place] 1 each PO Q6HR PRN #10 tablet 03/18/21 Unknown Rx 5/325] Ondansetron [Zofran Odt] 4 mg PO Q8HR PRN #14 tab.rapdis 05/08/21 Unknown Rx traMADoL [Ultram 50 MG tab] 50 mg PO Q4HR PRN #14 tablet 05/08/21 Unknown Rx Ketorolac [Toradol] 10 mg PO Q6H PRN #10 12/24/21 Unknown Rx cephALEXin [Keflex] 500 mg PO Q8HR #30 cap 12/24/21 Unknown Rx Allergies Allergy/AdvReac Type Severity Reaction Status Date / Time No Known Allergies Allergy Verified 03/18/21 08:38 ED Review of Systems Comment: All other systems reviewed and negative ED Past Medical Hx - Past Medical History Previous Medical History?: Yes Hx Hypertension: Yes Hx Arthritis: Yes Additional medical history: gout - Surgical History Past Surgical History?: No - Social History Smoking Status: Current Every Day Smoker Substance Use Type: None - Medications Home Medications: Home Medications Medication Instructions Recorded Confirmed Last Taken Type Colchicine 0.6 mg PO ONCE #6 capsule 01/12/16 Unknown Rx HYDROcodone/APAP 5-325 [[place] 1 each PO Q6HR PRN #14 tablet 01/12/16 Unknown Rx 5/325] Prednisone [predniSONE 10 mg 10 mg PO .TAPER #1 tab.ds.pk 01/12/16 Unknown Rx (6-Day Pack, 21 Tabs)] Meloxicam [Mobic] 15 mg PO DAILY #20 tablet 09/26/19 Unknown Rx Amoxicillin/Potassium Clav 1 each PO Q12H #20 tablet 11/21/20 Unknown Rx [Augmentin 875-125 Tablet] Butalb/Acetamin/Caff 50-325-40 1 tab PO Q6HR PRN #12 tab 11/21/20 Unknown Rx [Fioricet 50-325-40] Ibuprofen [Motrin] 600 mg PO Q8H PRN #20 tablet 11/21/20 Unknown Rx traMADoL [Ultram 50 MG tab] 50 mg PO Q6HR PRN #14 tablet 12/03/20 Unknown Rx Acetaminophen 975 mg PO TID PRN #20 capsule 02/08/21 Unknown Rx Polymyxin B Sulf/Trimethoprim 3 drops OP Q3H 7 Days #1 drops 02/08/21 Unknown Rx [Polytrim Eye Drops] Cyclobenzaprine [Flexeril] 10 mg PO TID PRN #15 tablet 03/18/21 Unknown Rx HYDROcodone/APAP 5-325 [[place] 1 each PO Q6HR PRN #10 tablet 03/18/21 Unknown Rx 5/325] Ondansetron [Zofran Odt] 4 mg PO Q8HR PRN #14 tab.rapdis 05/08/21 Unknown Rx traMADoL [Ultram 50 MG tab] 50 mg PO Q4HR PRN #14 tablet 05/08/21 Unknown Rx Ketorolac [Toradol] 10 mg PO Q6H PRN #10 12/24/21 Unknown Rx cephALEXin [Keflex] 500 mg PO Q8HR #30 cap 12/24/21 Unknown Rx ED Physical Exam - General Limitations: No Limitations General appearance: alert, in no apparent distress - Head Head exam: Present: atraumatic, normocephalic - Eye Eye exam: Present: normal appearance, PERRL, EOMI Pupils: Present: normal accommodation - ENT ENT exam: Present: mucous membranes moist - Neck Neck exam: Present: normal inspection - Respiratory Respiratory exam: Present: normal lung sounds bilaterally. Absent: respiratory distress - Cardiovascular Cardiovascular Exam: Present: regular rate, normal rhythm. Absent: systolic murmur, diastolic murmur, rubs, gallop - GI/Abdominal GI/Abdominal exam: Present: soft, normal bowel sounds - Rectal Rectal exam: Present: deferred - Extremities Exam Extremities exam: Present: normal inspection, tenderness, normal capillary refill. Absent: pedal edema, calf tenderness, other - Expanded Lower Extremity Exam Left Ankle exam: Present: normal inspection, full ROM Foot/Toe exam: Present: tenderness. Absent: puncture wound, foreign body, calcaneal tenderness Neuro vascular tendon exam: Present: no vascular compromise 1 - Callus with some surrounding tenderness on palpation. No cellulitis is present. Onychomycosis present to the toes - Back Exam Back exam: Present: normal inspection - Neurological Exam Neurological exam: Present: alert, oriented X3 - Psychiatric Psychiatric exam: Present: normal affect, normal mood - Skin Skin exam: Present: warm, dry, intact, normal color. Absent: rash ED Disposition Clinical Impression: Foot pain, Callus of foot Disposition: HOME / SELF CARE / HOMELESS Is pt being admited?: No Does the pt Need Aspirin: No Condition: Stable Instructions: How to Use Cold Therapy, [id number], Corns and Calluses, How to Use Cold Therapy, Foot Pain Prescriptions: cephALEXin [Keflex] 500 mg PO Q8HR #30 cap Ketorolac [Toradol] 10 mg PO Q6H PRN #10 PRN Reason: Pain Referrals: PRIMARY CARE, [Primary Care Provider] - 3-5 Days <MELINDA SCHAEFER - Last Filed: 12/27/21 20:10> ED Review of Systems ROS: Stated complaint: BOTTOM RIGHT FOOT PAIN Other details as noted in HPI ED Course Vital Signs 12/24/21 12/24/21 12/24/21 05:29 22:44 22:45 Temperature 97.9 F 97.7 F Pulse Rate 81 60 Respiratory 20 15 15 Rate Blood Pressure 120/75 Blood Pressure 139/77 [Left] O2 Sat by Pulse 90 95 95 Oximetry 12/24/21 22:46 Temperature 97.7 F Pulse Rate 60 Respiratory 14 Rate Blood Pressure 139/77 Blood Pressure [Left] O2 Sat by Pulse 95 Oximetry ED Medical Decision Making - Medical Decision Making I have reviewed the PA/MOBILITY ENGINEER's note and plan of care. I was available for consultation as needed at all times during the patient's visit in the emergency department but was not consulted on this case. Critical care attestation.: If time is entered above; I have spent that time in minutes in the direct care of this critically ill patient, excluding procedure time.
[2021-12-24 22:45] VITALS: BP 139/77
== END 2021-12-24 23:07 | disposition home or self-care (01) ==
LOC: ED 02:16
DX: L03.115 Cellulitis of right lower limb (principal); I10 Essential (primary) hypertension; M19.90 Unspecified osteoarthritis, unspecified site; F17.200 Nicotine dependence, unspecified, uncomplicated; Z79.899 Other long term (current) drug therapy
CPT/HCPCS: 99282